=== PATIENT | female | born 1980 | race Caucasian/White ===

== ENCOUNTER → 2017-05-07 | Outpatient (CLI) | payer OTHER, MEDICAID ==
[~2017-05-07] MED LIST: CLAR500T PO; LIRA0.6P SQ-INSULIN; METF500T PO; None per pt; OXYB5TAB7 PO
[2017-05-07 11:53] LABS: BASOPHILS # (AUTO) 0.03 x10^3/uL (0-0.1); BASOPHILS % (AUTO) 0 % (0-1); EOSINOPHILS # (AUTO) 0.04 x10^3/uL (0-0.4); EOSINOPHILS % (AUTO) 1 % (1-7); LYMPHOCYTES # (AUTO) 2.64 x10^3/uL (1-3.4); LYMPHOCYTES % (AUTO) 30 % (22-44); MD NO; MEAN CORPUSCULAR HEMOGLOBIN 22.5 pg (27.0-34.8); MEAN CORPUSCULAR HGB CONC 31.8 g/dL (32.4-35.8); MEAN CORPUSCULAR VOLUME 70.7 fL (80-100); MEAN PLATELET VOLUME 9.3 fL (7.4-10.4); MONOCYTES # (AUTO) 0.47 x10^3/uL (0.2-0.8); MONOCYTES % (AUTO) 5 % (2-9); NEUTROPHILS # (AUTO) 5.62 x10^3/uL (1.8-6.8); NEUTROPHILS % (AUTO) 64 % (42-75); PLATELET COUNT 313 x10^3/uL (130-400); RED CELL DISTRIBUTION WIDTH 16.9 % (9.6-15.2)
[2017-05-07 12:01] LABS: CHLORIDE 102 mmol/L (98-107)
[2017-05-07 12:33] LABS: % IRON SATURATION 6 % (20-55); ALANINE AMINOTRANSFERASE 56 U/L (12-78); ALBUMIN 3.8 g/dL (3.4-5.0); ALKALINE PHOSPHATASE 93 U/L (45-117); ANION GAP 11 mmol/L (5-15); BILIRUBIN,TOTAL 0.4 mg/dL (0.2-1.0); CALCIUM 9.3 mg/dL (8.5-10.1); CREATININE 0.76 mg/dL (0.55-1.02); FOLATE LEVEL 12.4 ng/mL (3.1-17.5); IRON LEVEL 21 mcg/dL (50-170); PREALBUMIN 22.8 mg/dL (20.0-40.0); TOTAL IRON BINDING CAPACITY 377 mcg/dL (250-450); TOTAL PROTEIN 7.8 g/dL (6.4-8.2); TRANSFERRIN 290 mg/dL (200-360)
== END ==
LOC: STAR 10:46
PROVIDERS: ATTEND Surgery
DX: Z01.818 Encounter for other preprocedural examination (principal)
CPT/HCPCS: 36415; 71046; 80053; 82306; 82607; 82728; 82746; 83540; 83550; 83970; 84134; 84425; 84466; 85025; 93005